=== PATIENT | male | born 1960 | race Hispanic/Latino ===

== ENCOUNTER 2017-09-15 18:05 | Observation (INO) | payer MEDICARE ==
[~2017-09-15] VITALS: Ht 170.2 cm; Wt 78.0 kg
[2017-09-15 18:25] VITALS: BP 127/70
[2017-09-15 19:20] LABS: BASOPHILS # (AUTO) 0.1 (0.0-0.1); BASOPHILS % 0.5 % (0.0-1.0); EOSINOPHILS # (AUTO) 0.1 (0.0-0.4); EOSINOPHILS % 1.4 % (0.0-6.0); HEMOGLOBIN 12.1 g/dL (14.0-18.0); LYMPHOCYTES # (AUTO) 2.8 (1.0-3.2); LYMPHOCYTES % 29.4 % (18.0-39.1); MEAN CORPUSCULAR HEMOGLOBIN 30.1 pg (28-32); MEAN CORPUSCULAR HGB CONC 34.6 g/dL (31-35); MEAN CORPUSCULAR VOLUME 87.1 fL (81-99); MONOCYTES % 10.3 % (4.4-11.3); NEUTROPHILS # (AUTO) 5.5 (2.1-6.9); NEUTROPHILS % 58.3 % (38.7-80.0); PLATELET COUNT 175 x10e3/uL (140-360); RED BLOOD COUNT 4.02 x10e6/uL (4.3-5.7); RED CELL DISTRIBUTION WIDTH 13.1 % (11.7-14.4)
[2017-09-15 19:37] LABS: ALANINE AMINOTRANSFERASE 27 IU/L (0-55); ALBUMIN 3.8 g/dL (3.5-5.0); ALBUMIN/GLOBULIN RATIO 1.3 (0.8-2.0); ALKALINE PHOSPHATASE 104 IU/L (40-150); ANION GAP 11.8 mmol/L (8-16); BLOOD UREA NITROGEN 12 mg/dL (7-26); BUN/CREATININE RATIO 14 (6-25); CALCIUM 8.8 mg/dL (8.4-10.2); CARBON DIOXIDE 24 mmol/L (22-29); CHLORIDE 110 mmol/L (98-107); CREATININE, SERUM 0.87 mg/dL (0.72-1.25); EST GLOMERULAR FILTRATION RATE > 60 ML/MIN (60-); GLUCOSE 84 mg/dL (74-118); POTASSIUM 3.8 mmol/L (3.5-5.1); SODIUM 142 mmol/L (136-145)
[2017-09-15 20:00] VITALS: BP 117/68
[2017-09-15] MEDS ORDERED: LACTATED RINGER'S 1,000 ML IV SCH (20:15)
[2017-09-15] MEDS ORDERED: DIATRIZOATE MEGL/DIATRIZOA SOD 30 ML BTL PO ONE (20:20)
[2017-09-15] MEDS: DEXTROSE 5%/0.9% SOD CHL 1,000 ML IV SCH (22:04)
[2017-09-15] MEDS: PANTOPRAZOLE 40 MG 10ML VIAL IV SCH (22:04)
[2017-09-15] MEDS: CEFTRIAXONE SOD 1 GM VIAL IV SCH (22:05)
--- NOTE | 2017-09-15 22:17 | Diagnostic Imaging Report ---
EXAM: CT ABDOMEN AND PELVIS with IV CONTRAST DATE: 09/15/2017 8:19 PM Time stamp on Exam: 2153 hours INDICATION: Gallbladder infection COMPARISON: None TECHNIQUE: The abdomen and pelvis were scanned using a multidetector helical scanner. Coronal and sagittal reformations were obtained. Routine protocol performed. IV Contrast: 100 cc Isovue-[id number] Oral Contrast: Water CTDIvol has been reviewed. It is below the limits set by the Radiation Protocol Committee (RPC). FINDINGS: LOWER THORAX: No consolidations LIVER: Subcentimeter focal hyperdensity at the superior anterior aspect of the right lobe of the liver, possibly a flash filling hemangioma. Diffuse hepatic steatosis. BILIARY: The gallbladder is partially contracted. The gallbladder wall is thickened up to approximately 5 mm. No ductal dilation. SPLEEN: No masses PANCREAS: No masses ADRENALS: No nodules KIDNEYS: Symmetric perfusion. No enhancing masses. No hydronephrosis. GI TRACT: No distention, wall thickening or evidence of obstruction. Normal appendix. VESSELS: Unremarkable PERITONEUM/RETROPERITONEUM: No free air or fluid LYMPH NODES: No lymphadenopathy REPRODUCTIVE ORGANS: Unremarkable BLADDER: Unremarkable SOFT TISSUES: Unremarkable BONES: No suspicious bone lesions. IMPRESSION: The partially contracted gallbladder shows gallbladder wall thickening. Ultrasound would be more sensitive to evaluate for gallstones. No ductal dilation. Diffuse hepatic steatosis. Signed by: Dr. Corry Pike M.D. on 09/15/2017 10:13 PM
[2017-09-15] MEDS ORDERED: IOPAMIDOL 370 MG/ML 200 ML INFUS..BTL INJ ONE (22:37)
[2017-09-15] MEDS ORDERED: SODIUM CHLORIDE 0.9% 50ML 50 ML ONE (22:37)
[2017-09-15] MEDS: METRONIDAZOLE 500MG/NS 100ML 200 ML IV SCH (22:59)
[2017-09-15 23:07] VITALS: BP 117/68
[2017-09-15 23:13] VITALS: BP 117/68
[2017-09-16] VITALS (7 sets, daily range): BP systolic 113–139; BP diastolic 66–70
[2017-09-16] MEDS: DEXTROSE 5%/0.9% SOD CHL 1,000 ML IV SCH ×3 (05:04→18:09)
[2017-09-16 05:31] LABS: CLARITY,URINE CLEAR (CLEAR); COLOR,URINE YELLOW (YELLOW); LEUKOCYTE ESTERASE ,URINE NEGATIVE (NEGATIVE); NITRITE,URINE NEGATIVE (NEGATIVE)
[2017-09-16 05:32] LABS: BILIRUBIN,URINE NEGATIVE (NEGATIVE); KETONES,URINE NEGATIVE (NEGATIVE); PROTEIN,URINE DIPSTICK NEGATIVE (NEGATIVE); URINE UROBILINOGEN 0.2 mg/dL (0.2 - 1)
[2017-09-16 05:41] LABS: BACTERIA,URINE MANY /HPF; EPITHELIAL CELLS,URINE RARE /LPF; RBC,URINE 0-5 /HPF (0-5); WBC,URINE (MAN) 0-5 /HPF (0-5)
[2017-09-16] MEDS: METRONIDAZOLE 500MG/NS 100ML 200 ML IV SCH ×3 (05:49→21:55)
[2017-09-16] MEDS ORDERED: BUPIVACAINE 0.25% 30ML SDV INJ ONE (09:10)
[2017-09-16] MEDS ORDERED: HYDROGEN PEROXIDE 120 ML BTL ONE (09:13)
[2017-09-16] MEDS ORDERED: HYDROMORPHONE 1MG/1ML INJ ONE (12:01)
[2017-09-16] MEDS: HYDROMORPHONE 1MG/1ML INJ IV PRN ×2 (13:29→18:10)
[2017-09-16] MEDS: HYDROCODONE/APAP 7.5MG-325MG 1 EA TAB PO PRN ×2 (15:02→21:55)
[2017-09-16] MEDS ORDERED: PROPOFOL IV EMULSION 10 MG/ML 20 ML VIAL ONE (17:45)
[2017-09-16] MEDS ORDERED: LIDOCAINE HCL 2% LOCAL INJ 5 ML SDV VIAL INJ ONE (17:45)
[2017-09-16] MEDS ORDERED: ACETAMINOPHEN 1000 MG/100 ML IV ONE (17:45)
[2017-09-16] MEDS ORDERED: SEVOFLURANE INHAL SOLN 250 ML PEN BTL ONE (17:45)
[2017-09-16] MEDS ORDERED: DEXAMETHASONE SOD PHOS INJ 4 MG/ML VIAL ONE (17:45)
[2017-09-16] MEDS ORDERED: ONDANSETRON HCL INJ 2 MG/ML VIAL ONE (17:45)
[2017-09-16] MEDS ORDERED: ROCURONIUM BROMIDE 10 MG/ML 5ML VIAL ONE (17:45)
[2017-09-16] MEDS ORDERED: MIDAZOLAM HCL 2 MG/2 ML VIAL ONE (18:00)
[2017-09-16] MEDS ORDERED: FENTANYL CITRATE/PF 100MCG/2 ML INJ ONE (18:00)
[2017-09-16] MEDS: PANTOPRAZOLE 40 MG 10ML VIAL IV SCH (21:55)
[2017-09-16] MEDS: CEFTRIAXONE SOD 1 GM VIAL IV SCH (21:55)
[2017-09-17 00:39] VITALS: BP 115/61
[2017-09-17] MEDS: DEXTROSE 5%/0.9% SOD CHL 1,000 ML IV SCH ×2 (04:32→11:53)
[2017-09-17] MEDS: HYDROCODONE/APAP 7.5MG-325MG 1 EA TAB PO PRN ×3 (04:35→13:31)
[2017-09-17 05:11] VITALS: BP 129/63
[2017-09-17] MEDS: METRONIDAZOLE 500MG/NS 100ML 200 ML IV SCH ×2 (05:49→13:30)
[2017-09-17 07:09] LABS: BASOPHILS % 0.3 % (0.0-1.0); EOSINOPHILS % 0.2 % (0.0-6.0); HEMATOCRIT 33.9 % (38.2-49.6); HEMOGLOBIN 11.3 g/dL (14.0-18.0); LYMPHOCYTES # (AUTO) 2.1 (1.0-3.2); LYMPHOCYTES % 18.8 % (18.0-39.1); MEAN CORPUSCULAR HEMOGLOBIN 29.5 pg (28-32); MEAN CORPUSCULAR HGB CONC 33.3 g/dL (31-35); MEAN CORPUSCULAR VOLUME 88.5 fL (81-99); MONOCYTES % 8.8 % (4.4-11.3); NEUTROPHILS # (AUTO) 8.1 (2.1-6.9); NEUTROPHILS % 71.6 % (38.7-80.0); PLATELET COUNT 167 x10e3/uL (140-360); RED BLOOD COUNT 3.83 x10e6/uL (4.3-5.7); RED CELL DISTRIBUTION WIDTH 13.2 % (11.7-14.4)
[2017-09-17 08:05] VITALS: BP 118/66
[2017-09-17 08:54] VITALS: BP 118/66
[2017-09-17 12:11] VITALS: BP 144/73
[2017-09-17] MEDS ORDERED: TYLENOL WITH C1 EACH PO (15:34)
[2017-09-17 16:01] VITALS: BP 137/74
== END 2017-09-17 16:32 | disposition home or self-care (01) ==
LOC: MED/SURG 18:05
PROVIDERS: ADMIT Surgery; ATTEND Surgery
DX: K80.12 Calculus of gallbladder with acute and chronic cholecystitis without obstruction (principal); Z87.891 Personal history of nicotine dependence; Z98.1 Arthrodesis status; Z01.810 Encounter for preprocedural cardiovascular examination; Z01.812 Encounter for preprocedural laboratory examination
CPT/HCPCS: 36415 ×2; 47562; 74177; 80053; 81001; 85025 ×2; 88304; 93005; 96360; G0378 ×3; J0696 ×2; J1100; J1170; J2001; J2250; J2405; J7042 ×2; Q9967